=== PATIENT | female | born 1980 | race Caucasian/White ===

== ENCOUNTER 2017-10-28 10:26 | Outpatient (CLI) | payer OTHER ==
[~2017-10-28 10:26] MED LIST: IMITREX50 MG PO; MILLIPRED5 MG
== END 2017-10-28 10:33 | disposition home or self-care (01) ==
LOC: SONOGRAMA 10:26 → MAMO-SONO 11:15
DX: N83.01 Follicular cyst of right ovary (principal); N83.02 Follicular cyst of left ovary

== ENCOUNTER 2017-11-04 08:35 | Outpatient (CLI) | payer OTHER | END 2017-11-04 08:50 | disposition home or self-care (01) | LOC: SONOGRAMA 08:35 | DX: R10.13 Epigastric pain (principal); N39.0 Urinary tract infection, site not specified; R85.9 Unspecified abnormal finding in specimens from digestive organs and abdominal cavity; K25.9 Gastric ulcer, unspecified as acute or chronic, without hemorrhage or perforation ==

== ENCOUNTER 2019-07-09 15:10 | Emergency (ER) | payer OTHER ==
[~2019-07-09] VITALS: Ht 167.6 cm; Wt 99.8 kg
== END 2019-07-09 21:03 | disposition home or self-care (01) ==
LOC: ER 15:10
DX: K52.89 Other specified noninfective gastroenteritis and colitis (principal); N83.291 Other ovarian cyst, right side